=== PATIENT | female | born 1985 | race African-American/Black ===

== ENCOUNTER 2016-11-13 17:10 | Emergency (ER) | payer SELFPAY ==
[2016-11-13 17:19] VITALS: BMI 56.5
--- NOTE | 2016-11-13 18:26 | PDOC ---
History of Present Illness <Nyasia Fink - Last Filed: 11/13/16 20:34> - General History Source: Patient Exam Limitations: No Limitations - History of Present Illness Initial Comments: 11/13/16 18:27 this 31yo F with PMHX obesity (BMI 56.5), sickle cell disease, anemia, HTN, D&C 8yrs ago 2/2 8months of metorrhagia presents due to a cold and sickle cell crisis. She states she had a fever that began yesterday with fever of 101.1 measured at home, SIBLEY, stuffy nose and rhinorrhea, and clear productive cough. States she took Tylenol Cold & Flu which helped. When she woke up this morning, she states she had severe low back and b/l knee pain, consistent with previous sickle cell crises (last crisis Jan 2016). She denies lightheadedness, dizziness , vision changes, n/v/d/constipation, urinary changes, CP, SOB. States she is noncompliant with her amlodipine and folic acid She is a 1/2 ppd smoker for the past year. she drinks alcohol socially. denies illicit drug use. states her LMP was 2 weeks ago, and is in a relationship with a female. 11/13/16 18:34 Timing/Duration: 24 hours Associated Symptoms: reports: cough, fever/chills, headaches. denies: chest pain, diaphoresis, nausea/vomiting, seizure, shortness of breath, syncope <Lorenzo Liu - Last Filed: 11/14/16 00:48> - General Chief Complaint: SIRS, Suspected/Possible Stated Complaint: PAIN Time Seen by Provider: 11/13/16 17:42 Past History <DanaeNyasia - Last Filed: 11/13/16 20:34> - Travel Traveled outside of the country in the last 30 days: No Close contact w/someone who was outside of country & ill: Yes - Past Medical History Anemia: Yes (SICKLE CELL DISEASE.ANEMIA) Asthma: Yes Cancer: No Cardiac Disorders: No CVA: No COPD: No CHF: No Dementia: No Diabetes: No GI Disorders: No Disorders: No HTN: No Hypercholesterolemia: No Liver Disease: No Seizures: No Thyroid Disease: No - Surgical History Abdominal Surgery: No Appendectomy: No Cardiac Surgery: No Cholecystectomy: No Gastric Stapling: No GI Surgery: No Lung Surgery: No Neurologic Surgery: No Orthopedic Surgery: No Other Surgical History: 11/13/16 18:22 8 month metorrhagia 2/2 D&C 8yrs ago - Reproductive History LMP Normal: Yes Is Patient Now?: No - Immunization History Immunization Up to Date: Yes - Psycho/Social/Smoking Cessation Hx Anxiety: No Suicidal Ideation: No Smoking Status: No Smoking History: Current every day smoker Years of Tobacco Use: 1 Have you smoked in the past 12 months: No Number of Cigarettes Smoked Daily: 10 Information on smoking cessation initiated: No Hx Alcohol Use: No Drug/Substance Use Hx: No Substance Use Type: None Hx Substance Use Treatment: No <Lorenzo Liu - Last Filed: 11/14/16 00:48> - Past Medical History Allergies/Adverse Reactions: Allergies Allergy/AdvReac Type Severity Reaction Status Date / Time No Known Drug Allergies Allergy Verified 11/13/16 19:08 RAW VEGETABLES/FRUIT Allergy Severe Difficulty Uncoded 11/13/16 17:16 Breathing Home Medications: Ambulatory Orders NK [No Known Home Medication] 11/13/16 Review of Systems - Review of Systems Able to Perform ROS?: Yes Is the patient limited Cameroonian proficient: No Constitutional: Yes: Fever, Night Sweats, Weakness HEENTM: Yes: Nose Congestion. No: Eye Pain, Blurred Vision, Recent change in vision, Double Vision, Ear Discharge, Nose Pain, Tinnitus, Nose Bleeding, Hearing Loss, Throat Pain, Throat Swelling, Mouth Pain, Difficulty Swallowing, Mouth Swelling Respiratory: Yes: Cough, Productive cough (clear sputum). No: Shortness of Breath, Stridor, Wheezing Cardiac (ROS): No: Chest Pain, Edema, Irregular Heart Rate, Lightheadedness, Palpitations, Syncope ABD/GI: No: Constipated, Diarrhea, Difficulty Swallowing, Nausea, Vomiting, Abdominal cramping : No: Burning, Dysuria, Discharge, Frequency Musculoskeletal: Yes: Back Pain (lower back), Joint Pain (b/l knee). No: Muscle Pain, Muscle Weakness, Neck Pain Neurological: Yes: Headache. No: Weakness Endocrine: No: Increased Thirst, Increased Urine Hematologic/Lymphatic: Yes: Anemia All Other Systems: Reviewed and Negative <Lorenzo Liu - Last Filed: 11/14/16 00:48> *Physical Exam - Vital Signs Last Vital Signs Temp Pulse Resp BP Pulse Ox 99.1 F 114 H 20 154/108 97 11/13/16 19:08 11/13/16 17:16 11/13/16 17:16 11/13/16 17:16 11/13/16 17:16 <Nyasia Fink - Last Filed: 11/13/16 20:34> - Vital Signs Last Vital Signs Temp Pulse Resp BP Pulse Ox 100.1 F H 114 H 20 154/108 97 11/13/16 17:16 11/13/16 17:16 11/13/16 17:16 11/13/16 17:16 11/13/16 17:16 - Physical Exam General Appearance: Yes: Nourished, Appropriately Dressed HEENT: positive: EOMI, DONALD, Normal Voice, TMs Normal, Tonsillar Erythema, Nasal Congestion, Rhinorrhea. negative: Pale Conjunctivae, Scleral Icterus (R) , Scleral Icterus (L), Tonsillar Exudate, Excessive drooling Neck: positive: Trachea midline. negative: Decreased range of motion, Lymphadenopathy (R), Lymphadenopathy (L), Tender lateral, Tender midline Respiratory/Chest: positive: Wheezing (low lobes b/l) Cardiovascular: positive: Regular Rhythm, Regular Rate, Tachycardia. negative: Diastolic Murmur, Systolic Murmur, Irregularly Irregular, Irregular Gastrointestinal/Abdominal: positive: Normal Bowel Sounds, Soft Musculoskeletal: positive: Vertebral Tenderness (T10 to sacrum). negative: CVA Tenderness Neurologic: positive: Fully Oriented, Alert, Normal Mood/Affect, Normal Response <Lorenzo Liu - Last Filed: 11/14/16 00:48> Heart Score/ECG Review - ECG Intrepretation Comment:: 11/13/16 20:16 ECG obtained at 19:05 Normal sinus at 90 bpm. <Nyasia Fink - Last Filed: 11/13/16 20:34> ED Treatment Course - LABORATORY CBC & Chemistry Diagram: 11/13/16 18:59 11/13/16 18:59 - ADDITIONAL ORDERS Additional order review: Laboratory Results 11/13/16 11/13/16 11/13/16 19:38 18:59 18:59 INR PTT (Actin FS) VBG pH 7.41 POC VBG pCO2 43.1 POC VBG pO2 37.1 Mixed VBG HCO3 26.6 H Sodium 138 Potassium 3.7 Chloride 104 Carbon Dioxide 26 Anion Gap 8 BUN 7 Creatinine 1.0 D Creat Clearance w eGFR > 60 Random Glucose 104 Lactic Acid 0.7 Calcium 8.6 Total Bilirubin 0.7 D AST 10 L ALT 16 Alkaline Phosphatase 61 D Creatine Kinase 51 Troponin I < 0.02 Total Protein 7.6 Albumin 3.5 Urine Color Urine Appearance Urine pH Urine Protein Urine Glucose (UA) Urine Ketones Urine Blood Urine Nitrite Urine Bilirubin Urine Urobilinogen Ur Leukocyte Esterase Blood Type Antibody Screen 11/13/16 11/13/16 11/13/16 18:59 18:59 18:35 INR 1.27 H PTT (Actin FS) 31.0 VBG pH POC VBG pCO2 POC VBG pO2 Mixed VBG HCO3 Sodium Potassium Chloride Carbon Dioxide Anion Gap BUN Creatinine Creat Clearance w eGFR Random Glucose Lactic Acid Calcium Total Bilirubin AST ALT Alkaline Phosphatase Creatine Kinase Troponin I Total Protein Albumin Urine Color Yellow Urine Appearance Clear Urine pH 5.0 Urine Protein Negative Urine Glucose (UA) Negative Urine Ketones Negative Urine Blood Negative Urine Nitrite Negative Urine Bilirubin Negative Urine Urobilinogen 2.0 H Ur Leukocyte Esterase Negative Blood Type B POSITIVE Antibody Screen Negative 11/13/16 18:59 RBC 4.52 MCV 74.0 L MCHC 33.9 RDW 20.4 H MPV 8.9 Neutrophils % 72.1 Lymphocytes % 19.1 D Monocytes % 6.2 D Eosinophils % 1.6 Basophils % 1.0 - RADIOLOGY Radiograph Interpretation: 11/13/16 20:34 Chest x-ray as reviewed by Dr. Loco reports no acute pathology. - Medications Given in the ED: ED Medications Discontinued Medications Generic Name Dose Route Start Last Admin Trade Name Salas PRN Reason Stop Dose Admin Acetaminophen 1,000 mg 11/13/16 18:48 11/13/16 19:00 Ofirmev Injection - IVPB 11/13/16 18:49 1,000 mg ONCE ONE Administration Ketorolac Tromethamine 30 mg 11/13/16 18:48 11/13/16 19:29 Toradol Injection - IVPUSH 11/13/16 18:49 30 mg ONCE ONE Administration Sodium Chloride 4,763 ml 11/13/16 18:46 11/13/16 18:58 Normal Saline - IV 11/13/16 18:47 4,763 ml ONCE STA Administration <Nyasia Fink - Last Filed: 11/13/16 20:34> - LABORATORY CBC & Chemistry Diagram: 11/13/16 18:59 11/13/16 18:59 <Lorenzo Liu - Last Filed: 11/14/16 00:48> Medical Decision Making - Medical Decision Making 11/13/16 18:27 31yo F with PMHX obesity (BMI 56.5), sickle cell disease, anemia, HTN, D&C 8yrs ago 2/2 8months of metorrhagia presents due to a cold and sickle cell crisis. Sickle cell crisis precipitated by viral infection -IVF, 2L O2. Pt refuses morphine that was offered. -CBC w/ diff. Retic count. BMP. Lactic acid. Fever of unknown origin -pt states she measured at home and got 101.1F. We have measured 100.1. Pt is also HTN and tachycardic. -Blood culture. Urinalysis w/ urine . -Chest Xray. -IV Tylenol and Toradol 11/13/16 18:45 <Lorenzo Liu - Last Filed: 11/14/16 00:48> *DC/Admit/Observation/Transfer - Attestations Scribe Attestion: 11/13/16 20:35 Documentation prepared by Nyasia Fink, acting as medical laboratory scientist for Lorenzo Liu DO. 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 Keep your fever down and stay well hydrated. Motrin, Tylenol and 5 20 Ounce Bottles of water a day. Best- Dr. Lorenzo Liu
[2016-11-13] MEDS ORDERED: SODIUM CHLORIDE 0.9% 1000 ML INFUS.BAG IV STA (18:46)
[2016-11-13] MEDS ORDERED: ACETAMINOPHEN 1000 MG/100 ML VIAL (NON FORMULARY) IVPB ONE (18:48)
[2016-11-13] MEDS ORDERED: KETOROLAC TROMETHAMINE 30 MG/1 ML VIAL IVPUSH ONE (18:48)
[2016-11-13 19:16] LABS: EOSINOPHIL 1.6 % (0-4.5); MCHC 33.9 g/dl (32.0-36.0); MEAN PLT VOLUME 8.9 fl (7.5-11.1); NEUTROPHILS 72.1 % (42.8-82.8); PLATELET COUNT 191 K/MM3 (134-434); RDW 20.4 % (11.6-15.6); WHITE BLOOD COUNT 6.9 K/mm3 (4.0-10.0)
[2016-11-13 19:17] LABS: URINE APPEARANCE CLEAR; URINE BILIRUBIN NEGATIVE (NEGATIVE); URINE BLOOD NEGATIVE (NEGATIVE); URINE COLOR YELLOW; URINE GLUCOSE (UA) NEGATIVE (NEGATIVE); URINE KETONE NEGATIVE (NEGATIVE); URINE LEUK ESTERASE NEGATIVE (NEGATIVE); URINE NITRITE NEGATIVE (NEGATIVE); URINE PROTEIN NEGATIVE (NEGATIVE)
[2016-11-13] MEDS ORDERED: KETOROLAC TROMETHAMINE 30 MG/1 ML VIAL ONE (19:31)
[2016-11-13 19:47] LABS: INR 1.27 (0.82-1.09)
[2016-11-13 19:50] LABS: VENOUS BLOOD GAS HCO3 26.6 meq/L (19-25); VENOUS PH 7.41 (7.32-7.42)
[2016-11-13 19:53] LABS: ALBUMIN 3.5 g/dl (3.4-5.0); ANION GAP 8 (8-16); BILIRUBIN,TOTAL 0.7 mg/dL (0.2-1.0); CALCIUM 8.6 mg/dL (8.5-10.1); CO2 26 mmol/L (21-32); GLUCOSE,RANDOM 104 mg/dL (74-106); SGOT/AST 10 U/L (15-37); SGPT/ALT 16 U/L (12-78); TOT PROT 7.6 g/dl (6.4-8.2)
[2016-11-13 19:55] LABS: ALK PHOS 61 U/L (45-117); CPK 51 IU/L (26-192); TROPONIN I < 0.02 ng/ml (0.00-0.05)
[2016-11-14 02:32] VITALS: BP 148/89; PULSE 97; TEMP 98.6
--- NOTE | 2016-11-15 08:16 | EKG ---
Test Reason : Blood Pressure : / mmHG Vent. Rate : 090 BPM Atrial Rate : 090 BPM P-R Int : 152 ms QRS Dur : 086 ms QT Int : 356 ms P-R-T Axes : 030 018 021 degrees QTc Int : 435 ms POOR DATA QUALITY, INTERPRETATION MAY BE ADVERSELY AFFECTED NORMAL SINUS RHYTHM MINIMAL VOLTAGE CRITERIA FOR LVH, MAY BE NORMAL VARIANT BORDERLINE ECG NO PREVIOUS ECGS AVAILABLE Confirmed by ALFREDO PALMA, SILVIA ([id number]) on 11/15/2016 8:16:00 AM Referred By: Confirmed By:SILVIA FUENTES MD
== END 2016-11-14 06:00 | disposition home or self-care (01) ==
LOC: JER 17:10
PROC: 3E033GC Introduction of Other Therapeutic Substance into Peripheral Vein, Percutaneous Approach (ICD-10-PCS; principal; 2016-11-13)
PROC: 3E0337Z Introduction of Electrolytic and Water Balance Substance into Peripheral Vein, Percutaneous Approach (ICD-10-PCS; 2016-11-13)
DX: D57.00 Hb-SS disease with crisis, unspecified (principal); I10 Essential (primary) hypertension; J45.909 Unspecified asthma, uncomplicated; E66.9 Obesity, unspecified; Z68.43 Body mass index [BMI] 50.0-59.9, adult; F17.210 Nicotine dependence, cigarettes, uncomplicated; Z91.14 Patient's other noncompliance with medication regimen; D64.9 Anemia, unspecified
CPT/HCPCS: 36415; 71020-TC; 80053; 81003; 82803; 83605; 84484; 85025; 85044; 85610; 85730; 86850; 86900; 86901; 87040; 87086; 93005; 93010; 99285-25

== ENCOUNTER 2019-06-08 23:44 | Emergency (ER) | payer OTHER ==
[2019-06-08 23:48] VITALS: TEMP 98.6; BMI 53.8
--- NOTE | 2019-06-08 23:58 | PDOC ---
History of Present Illness - General Chief Complaint: Sickle Cell Crisis Stated Complaint: SICK Time Seen by Provider: 06/08/19 23:57 - History of Present Illness Initial Comments: 06/08/19 23:57 34 yo F PMH obesity, sickle cell disease, anemia, HTN, D&C 2/2 metrorrhagia, presenting with pain. Reports that it began around 1900 with pain below her left knee and in her b/l elbows, identical to her normal pain crises. Tried acetam inophen without relief. Last crisis was in March 2019, went to [facility]. Does not know what triggered it; no recent travel or sick contacts, afebrile, no CP or SOB. Refuses morphine; states that she has received it once and hated it. Only wants acetaminophen with codeine, which is what she has used for prior episodes. Past History - Past Medical History Allergies/Adverse Reactions: Allergies Allergy/AdvReac Type Severity Reaction Status Date / Time No Known Drug Allergies Allergy Verified 06/10/19 05:48 RAW VEGETABLES/FRUIT Allergy Severe Difficulty Uncoded 06/10/19 05:48 Breathing Home Medications: Ambulatory Orders Amlodipine Besylate 5 mg PO DAILY 06/09/19 Anemia: Yes (SICKLE CELL DISEASE.ANEMIA) Asthma: Yes Cancer: No Cardiac Disorders: No CVA: No COPD: No CHF: No Dementia: No Diabetes: No GI Disorders: No Disorders: No HTN: No Hypercholesterolemia: No Liver Disease: No Seizures: No Thyroid Disease: No - Surgical History Abdominal Surgery: No Appendectomy: No Cardiac Surgery: No Cholecystectomy: No Gastric Stapling: No GI Surgery: No Lung Surgery: No Neurologic Surgery: No Orthopedic Surgery: No - Immunization History Immunization Up to Date: Yes - Psycho Social/Smoking Cessation Hx Smoking Status: No Smoking History: Never smoked Years of Tobacco Use: 1 Have you smoked in the past 12 months: No Number of Cigarettes Smoked Daily: 10 Information on smoking cessation initiated: No Hx Alcohol Use: No Drug/Substance Use Hx: No Substance Use Type: None Hx Substance Use Treatment: No Review of Systems - Review of Systems Comments:: 06/09/19 00:19 GENERAL/CONSTITUTIONAL: denies fever, chills, diaphoresis, generalized weakness, malaise, loss of appetite, weight change HEAD, EYES, EARS, NOSE AND THROAT: denies rhinorrhea, nasal congestion, throat pain, throat swelling, difficulty swallowing, mouth swelling, ear pain, eye pain, visual changes NEUROLOGIC: denies headache, focal weakness or paresthesias, dizziness, unsteady gait, seizure, mental status changes, bladder or bowel incontinence CARDIOVASCULAR: denies chest pain, syncope, palpitations, irregular heart rate, lightheadedness, peripheral edema RESPIRATORY: denies cough, shortness of breath, dyspnea with exertion, orthopnea, wheezing, stridor, hemoptysis GASTROINTESTINAL: denies abdominal pain, abdominal distension, nausea, vomiting, diarrhea, constipation, melena, hematochezia GENITOURINARY: denies dysuria, frequency, urgency, hesitancy, hematuria, flank pain, genital pain MUSCULOSKELETAL: endorses severe arthralgia below L knee with joint swelling. Denies back pain, neck pain SKIN: denies rash, itching, pallor HEMATOLOGIC/IMMUNOLOGIC: denies easy bleeding, easy bruising, lymphadenopathy, frequent infections ENDOCRINE: denies unexplained weight gain, unexplained weight loss, heat intolerance, cold intolerance PSYCHIATRIC: denies anxiety, depression, suicidal or homicidal ideation, hallucinations *Physical Exam - Vital Signs Last Vital Signs Temp Pulse Resp BP Pulse Ox 98.6 F 89 23 H 157/97 96 06/08/19 23:46 06/08/19 23:46 06/08/19 23:46 06/08/19 23:46 06/08/19 23:46 - Physical Exam 06/09/19 00:21 Gen: well-developed, well-nourished, appears in significant pain Neuro: AAOX4, CN II-XII intact, FTN intact, EOMI, PERRLA, 5/5 strength, SILT HEENT: atraumatic, normocephalic, dry mucous membranes Neck: trachea midline, supple CV: regular rate, regular rhythm, no murmurs, rubs, or gallops Pulm: CTA b/l, no wheezing Abd: soft, non-distended, non-tender MSK: full ROM, intact pulses, tenderness and swelling below L knee Extr: no edema, no deformities Skin: warm, dry ED Treatment Course - LABORATORY CBC & Chemistry Diagram: 06/09/19 00:05 06/09/19 00:05 Medical Decision Making - Medical Decision Making 06/09/19 00:14 Concern for sickle cell crisis. - CBC, CMP - 1L LR - acetaminophen with codeine 02/28/20 01:18 Pain unchanged, will put in morphine and Zofran. Also get hip and knee X rays, c/f osteonecrosis. 06/09/19 03:22 Pain ongoing, will give more morphine and toradol. 06/09/19 03:23 Knee and hip X rays without acute pathology. Pain improved with last dose of medications. Will dc patient for further outpatient management. Discharge - Discharge Information Problems reviewed: Yes Clinical Impression/Diagnosis: Sickle-cell crisis Condition: Improved Disposition: HOME - Follow up/Referral Referrals: Ritu Gonzalez MD [Primary Care Provider] - - Patient Discharge Instructions Patient Printed Discharge Instructions: DI for Sickle Cell Anemia, Pain Crisis -- Adult Additional Instructions: You were seen with a sickle cell crisis. This improved with pain medication. Please take over the counter pain medication as needed. Follow up with your primary care doctor within one week. Return to the ED if you develop worsening symptoms. - Post Discharge Activity Work/Back to School Note: Back to Work
[2019-06-09] MEDS ORDERED: ACETAMINOPHEN W/ CODEINE LIQ 5 ML CUP PO ONE (00:03)
[2019-06-09] MEDS ORDERED: LACTATED RINGERS SOLUTION 1,000 ML/1,000 ML INFUS.BAG IV STA ×2 (00:10→03:22)
[2019-06-09] MEDS ORDERED: ACETAMINOPHEN W/ CODEINE LIQ 5 ML CUP ONE (00:22)
--- NOTE | 2019-06-09 00:33 | PDOC ---
Attending Attestation - Resident Resident Name: Alis Patterson - ED Attending Attestation I have performed the following: I have examined & evaluated the patient, The case was reviewed & discussed with the resident, I agree w/resident's findings & plan, Exceptions are as noted - HPI HPI: 06/09/19 00:32 See resident HPI - Physicial Exam PE: 06/09/19 00:32 Agree with documented exam - Medical Decision Making 06/09/19 00:32 34F c/o LLE and bilateral UE px which is typical distribution of prior scc Denies f/c, recent travel, sick contacts Exam inconsistent with infection IVF, analgesia re-eval Pain improved after 3 rounds of medication dc home with return instructions
[2019-06-09 00:53] LABS: BASO % 0.4 % (0-2.0); EOS % 0.7 % (0-4.5); HEMATOCRIT 31.9 % (32.4-45.2); LYMPH % 17.9 % (8-40); MCH 25.7 pg (25.7-33.7); MCHC 34.5 g/dl (32.0-36.0); MEAN CELL VOLUME 74.4 fl (80-96); MEAN PLT VOLUME 8.6 fl (7.5-11.1); MONO % 3.7 % (3.8-10.2); NEUT % 77.3 % (42.8-82.8); PLATELET COUNT 203 K/MM3 (134-434); RBC 4.29 M/mm3 (3.60-5.2); RDW 18.4 % (11.6-15.6); WHITE BLOOD COUNT 11.2 K/mm3 (4.0-10.0)
[2019-06-09] MEDS ORDERED: ONDANSETRON 4 MG/2 ML VIAL IVPUSH ONE (01:17)
[2019-06-09] MEDS ORDERED: morphine CARPU-JECT 4 MG/1 ML DISP.SYRIN IVPUSH ONE ×2 (01:17→03:12)
[2019-06-09 01:21] LABS: ALBUMIN 3.7 g/dl (3.4-5.0); BILIRUBIN,TOTAL 0.6 mg/dL (0.2-1); BLOOD UREA NITROGEN 12.3 mg/dL (7-18); CALCIUM 8.5 mg/dL (8.5-10.1); TOT PROT 7.8 g/dl (6.4-8.2)
[2019-06-09] MEDS ORDERED: morphine SULFATE 4 MG/ML VIAL ONE ×2 (01:22→03:14)
[2019-06-09] MEDS ORDERED: ONDANSETRON 4 MG/2 ML VIAL ONE (01:22)
[2019-06-09] MEDS ORDERED: KETOROLAC TROMETHAMINE 30 MG/1 ML VIAL IVPUSH ONE (03:13)
[2019-06-09] MEDS ORDERED: KETOROLAC TROMETHAMINE 15 MG/ML VIAL ONE (03:15)
[2019-06-09 05:10] VITALS: BP 130/71; PULSE 76
== END 2019-06-09 05:14 | disposition home or self-care (01) ==
LOC: JER 23:44
PROC: 3E0337Z Introduction of Electrolytic and Water Balance Substance into Peripheral Vein, Percutaneous Approach (ICD-10-PCS; principal; 2019-06-08)
PROC: 3E033NZ Introduction of Analgesics, Hypnotics, Sedatives into Peripheral Vein, Percutaneous Approach (ICD-10-PCS; 2019-06-08)
PROC: 3E033GC Introduction of Other Therapeutic Substance into Peripheral Vein, Percutaneous Approach (ICD-10-PCS; 2019-06-08)
PROC: 3E0333Z Introduction of Anti-inflammatory into Peripheral Vein, Percutaneous Approach (ICD-10-PCS; 2019-06-08)
DX: D57.00 Hb-SS disease with crisis, unspecified (principal); I10 Essential (primary) hypertension; E66.01 Morbid (severe) obesity due to excess calories; Z68.43 Body mass index [BMI] 50.0-59.9, adult; Z91.018 Allergy to other foods; Z87.09 Personal history of other diseases of the respiratory system
CPT/HCPCS: 36415; 73523-TC-FY; 73560-TC-LT-FY; 80053; 85025; 96361; 96374; 96375; 96376; 99284-25

== ENCOUNTER 2019-06-10 05:09 | Inpatient (IN) | payer OTHER ==
[2019-06-10] MEDS ORDERED: ONDANSETRON 4 MG/2 ML VIAL IVPUSH ONE (06:19)
[2019-06-10] MEDS ORDERED: SODIUM CHLORIDE 0.9% 500 ML INFUS.BAG IV ONE (06:19)
[2019-06-10] MEDS ORDERED: morphine CARPU-JECT 4 MG/1 ML DISP.SYRIN IVPUSH ONE (06:19)
--- NOTE | 2019-06-10 06:31 | PDOC ---
History of Present Illness - General Chief Complaint: Chronic pain Stated Complaint: PAIN History Source: Patient Exam Limitations: No Limitations - History of Present Illness Initial Comments: 06/10/19 06:23 34YOF with h/o sickle cell disease (states she does not know SS/CS type, states her mother has it too) who returns to the ED with BLE pain worse in the knees and calves which she states is typical of her normal sickle cell pain crisis. She was seen here in the ED last night for the same complaint. She is still able to ambulate albeit with a limp. Denies any skin changes, jaundice, pallor, chest pain, SOB, SIBLEY, back pain, n/t/w focally, vision changes, abdominal pain, vaginal bleeding/discharge, dysuria, or any other symptoms. Past History - Past Medical History Allergies/Adverse Reactions: Allergies Allergy/AdvReac Type Severity Reaction Status Date / Time No Known Drug Allergies Allergy Verified 06/10/19 05:48 RAW VEGETABLES/FRUIT Allergy Severe Difficulty Uncoded 06/10/19 05:48 Breathing Home Medications: Ambulatory Orders Amlodipine Besylate 5 mg PO DAILY 06/09/19 Acetaminophen W/ Codeine #3 [Tylenol # 3 -] 2 tab PO Q6H PRN #40 tablet MDD 8 06/11/19 Ondansetron HCl [Zofran] 4 mg PO Q6H PRN #15 tablet 06/11/19 Anemia: Yes (SICKLE CELL DISEASE.ANEMIA) Asthma: Yes Cancer: No Cardiac Disorders: No CVA: No COPD: No CHF: No Dementia: No Diabetes: No GI Disorders: No Disorders: No HTN: No Hypercholesterolemia: No Liver Disease: No Seizures: No Thyroid Disease: No - Surgical History Abdominal Surgery: No Appendectomy: No Cardiac Surgery: No Cholecystectomy: No Gastric Stapling: No GI Surgery: No Lung Surgery: No Neurologic Surgery: No Orthopedic Surgery: No - Immunization History Immunization Up to Date: Yes - Psycho Social/Smoking Cessation Hx Smoking Status: No Smoking History: Never smoked Years of Tobacco Use: 1 Have you smoked in the past 12 months: No Number of Cigarettes Smoked Daily: 10 Information on smoking cessation initiated: No Hx Alcohol Use: No Drug/Substance Use Hx: No Substance Use Type: None Hx Substance Use Treatment: No Review of Systems - Review of Systems Able to Perform ROS?: Yes Comments:: 06/10/19 06:31 GEN: no fever, chills, malaise, or generalized weakness HEENT: no ear pain, congestion, sore throat, vision change, or eye pain CV: no chest pain, palpitations, lightheadedness, syncope, or edema RESP: no SOB, wheezing, or cough GI: no abdominal pain, nausea, vomiting, diarrhea, constipation, or rectal bleed : no dysuria, hematuria, or discharge MSK: left knee pain, left calf pain NEURO: no headache, vertigo, numbness, tingling, or focal weakness PSYCH: no SI, HI, or behavior change SKIN: no jaundice, rash, lesions, or unexplained bruises ROS otherwise negative except as noted in HPI *Physical Exam - Vital Signs Last Vital Signs Temp Pulse Resp BP Pulse Ox 98.2 F 71 20 148/81 99 06/10/19 05:48 06/10/19 05:48 06/10/19 05:48 06/10/19 05:48 06/10/19 05:48 - Physical Exam 06/10/19 06:32 GENERAL: nontoxic-appearing, A/Ox4, moderate distress, answers questions appropriately, obese, partner at bedside appears supportive HEENT: PERRLA, EOMI, moist mucous membranes NECK/BACK: no midline ttp, no spinal stepoff or deformity, no hematoma, full ROM, neck supple CARDIOVASCULAR: regular rate/rhythm, no MGR, strong peripheral pulses, capillary refill <2 seconds, extremities wwp, no edema LUNGS/RESPIRATORY: no respiratory distress, CTAB GI/ABDOMEN: symmetric [id number], normoactive BS, soft, no ttp, no midline pulsatile masses : no CVA tenderness EXTREMITIES: left knee and calf tenderness but full ROM, no muscle atrophy, no acute deformity DERM/SKIN: warm and dry, no pallor, no jaundice, no rash, no bruising, no skin breakdown, no cuts, no lesions NEUROLOGICAL: seen ambulating with limp to exam room, GCS 15, CN II-XII grossly intact, 5/5 strength proximally and distally, no facial droop, sensation intact and equal BLE distally Heart Score/ECG Review #1 Sinus rhythm, rate of 53, normal axis and intervals, no ischemic ST-T changes ED Treatment Course - LABORATORY CBC & Chemistry Diagram: 06/11/19 08:05 06/11/19 08:05 Medical Decision Making - Medical Decision Making 06/10/19 06:24 Adult female Pt with sickle cell disease p/w left knee pain. Patient states she does have a PCP but has not been taking any home meds for SSD and does not get her recommended immunizations. Initial Vital Signs Temp Pulse Resp BP Pulse Ox 98.2 F 71 20 148/81 99 06/10/19 05:48 06/10/19 05:48 06/10/19 05:48 06/10/19 05:48 06/10/19 05:48 Exam: As noted in Physical Exam section. DDX IBNLT: most likely vasoocclusive pain crisis as this is consistent with prior pain crises and her x-rays yesterday showed nothing acute. Very unlikely any other more serious etiology e.g. aplastic crisis, stroke, sepsis (encapsulated organisms, sources meningitis/osteomyelitis/PNA/leg ulcers/UTI, post-splenectomy sepsis syndrome, etc), osteonecrosis, etc W/U ordered: Labs as noted below, EKG TX ordered: IVF, morphine and Benadryl Unlikely acute chest syndrome as Pt is not febrile or hypoxic, no cough or chest pain, no CXR consolidation. Unlikely splenic sequestration crisis as Pt denies abdominal pain, no splenomegaly, no clinical pallor, VS wnl. Unlikely aplastic crisis as VS wnl and Pt not in shock, no clinical pallor, no reported lethargy. Unlikely stroke as Pt has no aphasia, vision change, hemiparesis, or other focal neuro deficit. Unlikely sepsis as VS wnl, clinically Pt has no e/o meningitis, osteomyelitis, PNA, UTI, infected ulcers, etc. Unlikely post-splenectomy sepsis syndrome as Pt denies fever/flu sxs, VS are not concerning for sepsis. Unlikely leg ucer infection as Pt has no ulcers over malleoli (common in sickle cell disease). Unlikely bilirubin cholelithiasis as Pt denies RUQ pain changing with meals. Unlikely osteonecrosis as Pt denies hip or shoulder pain. Probable vasoocclusive crisis as Pts pain is in ribs/back/limbs, present <7days, no clinical signs of anemia. EKG: Reviewed; results as noted in ECG Review section. This is the patient's second visit and she is being worked up for admission. She states she is amenable to admission. Patient's ED care endorsed to the oncoming team at the end of my shift. Discharge - Discharge Information Problems reviewed: Yes Clinical Impression/Diagnosis: Sickle-cell crisis Condition: Guarded - Follow up/Referral - Patient Discharge Instructions - Post Discharge Activity
--- NOTE | 2019-06-10 06:32 | PDOC ---
Attending Attestation - Resident Resident Name: SanjuanaAshlyn - ED Attending Attestation I have performed the following: I have examined & evaluated the patient, The case was reviewed & discussed with the resident, I agree w/resident's findings & plan - HPI HPI: 06/10/19 06:31 Pt comes with intactable left knee pain; sickle cell crisis. SHe was here 24 hrs prior for the same and went home because she thought that she was doing better. Pt's labs are all WNL We will draw a retic ocunt and treat with pain meds. - Physicial Exam PE: 06/11/19 06:56 Agree with resident exam. Pt is overweight Pt is able to ambulate with pain Pt afebrile chronic joint pain. - Medical Decision Making 06/11/19 06:58 06/11/19 06:57 will get a retic count and she will be signed out to the day team
[2019-06-10] MEDS ORDERED: ONDANSETRON 4 MG/2 ML VIAL ONE (07:09)
[2019-06-10] MEDS ORDERED: morphine SULFATE 4 MG/ML VIAL ONE ×2 (07:09→10:55)
--- NOTE | 2019-06-10 07:33 | PDOC ---
*Physical Exam - Vital Signs Last Vital Signs Temp Pulse Resp BP Pulse Ox 98.2 F 71 20 148/81 99 06/10/19 05:48 06/10/19 05:48 06/10/19 05:48 06/10/19 05:48 06/10/19 05:48 - Physical Exam 06/10/19 07:33 GENERAL: Awake, alert, and fully oriented, in no acute distress HEAD: No signs of trauma, normocephalic, atraumatic EYES: PERRLA, EOMI, sclera anicteric, conjunctiva clear ENT: Auricles normal inspection, hearing grossly normal, nares patent, oropharynx clear without exudates. Moist mucosa NECK: Normal ROM, supple, no lymphadenopathy, JVD, or masses LUNGS: No distress, speaks full sentences, clear to auscultation bilaterally HEART: Regular rate and rhythm, normal S1 and S2, no murmurs, rubs or gallops, peripheral pulses normal and equal bilaterally. ABDOMEN: Soft, nontender, normoactive bowel sounds. No guarding, no rebound. No masses EXTREMITIES : Diffuse left knee ttp. Normal inspection, Normal range of motion, no edema. No clubbing or cyanosis. 2+ palpable and symmetric pulses throughout. NEUROLOGICAL: Cranial nerves II through XII grossly intact. Normal speech, normal gait, no focal sensorimotor deficits SKIN: Warm, Dry, normal turgor, no rashes or lesions noted ED Treatment Course - LABORATORY CBC & Chemistry Diagram: 06/10/19 07:00 06/10/19 07:00 Medical Decision Making - Medical Decision Making 06/10/19 07:28 34 yo F with h/o s.s disease, HTN, who p/w BL UE pain and left knee pain consistent with prior acute pain crisis. Patient endorsed by Dr. Adkins. Patient denies PO analgesia use. Patient denies SIBLEY, vision change, palpitations, cough, wheezing, leg swelling, N/V, F,C, CP, SOB, urinary complaints, hematuria, BPR, abdominal pain, diarrhea, lightheadedness, weakness, sensory changes. Patient presents to ED following recent d/c (06/09/19) for same presentation, improvement after morphine, and toradol. LLE neurovascularly intact. Pending labs, admission. Ed course: Diphenhydramine, Morphine Discharge - Discharge Information Problems reviewed: Yes Clinical Impression/Diagnosis: Sickle-cell crisis Condition: Stable - Admission Yes - Follow up/Referral Referrals: Mariajose Victor MD [Primary Care Provider] - - Patient Discharge Instructions - Post Discharge Activity
[2019-06-10 07:57] LABS: BASO % 0.7 % (0-2.0); EOS % 3.1 % (0-4.5); HEMATOCRIT 32.1 % (32.4-45.2); HEMOGLOBIN 11.3 GM/dL (10.7-15.3); LYMPH % 20.4 % (8-40); MCH 25.9 pg (25.7-33.7); MCHC 35.3 g/dl (32.0-36.0); MEAN CELL VOLUME 73.4 fl (80-96); MEAN PLT VOLUME 8.6 fl (7.5-11.1); NEUT % 72.8 % (42.8-82.8); PLATELET COUNT 197 K/MM3 (134-434); RBC 4.37 M/mm3 (3.60-5.2); RDW 18.6 % (11.6-15.6); WHITE BLOOD COUNT 8.9 K/mm3 (4.0-10.0)
[2019-06-10 08:04] LABS: INR 1.14 (0.83-1.09); PROTHROMBIN TIME (PATIENT) 13.5 SEC (9.7-13.0)
[2019-06-10 08:17] LABS: ALBUMIN 3.8 g/dl (3.4-5.0); BILIRUBIN,TOTAL 0.6 mg/dL (0.2-1); BLOOD UREA NITROGEN 9.2 mg/dL (7-18); CALCIUM 8.7 mg/dL (8.5-10.1); CREATININE 0.9 mg/dL (0.55-1.3); POTASSIUM 3.9 mmol/L (3.5-5.1); TOT PROT 7.7 g/dl (6.4-8.2)
[2019-06-10] MEDS ORDERED: morphine SULFATE 4 MG/ML VIAL IVPUSH PRN (09:16)
[2019-06-10] MEDS ORDERED: amLODIPine BESYLATE 5 MG TABLET (FP) ONE (09:53)
[2019-06-10] MEDS ORDERED: ENOXAPARIN NA (PORCINE) 40 MG/0.4 ML DISP.SYRIN SQ ONE (09:53)
[2019-06-10] MEDS: ENOXAPARIN NA (PORCINE) 40 MG/0.4 ML DISP.SYRIN SQ SCH (10:02)
[2019-06-10] MEDS: amLODIPine BESYLATE 5 MG TABLET (FP) PO SCH (10:02)
[2019-06-10] MEDS: SODIUM CHLORIDE 0.45% 1,000 ML IV SCH (10:02)
--- NOTE | 2019-06-10 13:10 | HP ---
Admitting History and Physical - Primary Care Physician PCP: Mariajose Victor - Admission Chief Complaint: pain History of Present Illness: known h/o sickle cell ds. here for severe sickle pain was in er yesterday was discharged but returned due to severe leg pain starts in knee radiating to thigh and calf usually pain is not this severe though no recent trauma or illness History Source: Patient Limitations to Obtaining History: No Limitations - Past Medical History Cardiovascular: Yes: HTN ...LMP: 10/21/12 Heme/Onc: Yes: Sickle Cell Disease - Smoking History Smoking history: Never smoked Have you smoked in the past 12 months: No Aproximately how many cigarettes per day: 10 - Alcohol/Substance Use Hx Alcohol Use: No - Social History ADL: Independent Home Medications - Allergies Allergies/Adverse Reactions: Allergies Allergy/AdvReac Type Severity Reaction Status Date / Time No Known Drug Allergies Allergy Verified 06/10/19 05:48 RAW VEGETABLES/FRUIT Allergy Severe Difficulty Uncoded 06/10/19 05:48 Breathing - Home Medications Home Medications: Ambulatory Orders Amlodipine Besylate 5 mg PO DAILY 06/09/19 Review of Systems - Review of Systems Constitutional: reports: No Symptoms Eyes: reports: No Symptoms HENT: reports: No Symptoms Neck: reports: No Symptoms Cardiovascular: reports: No Symptoms Respiratory: reports: No Symptoms Gastrointestinal: reports: No Symptoms Genitourinary: reports: No Symptoms Musculoskeletal: reports: Joint Pain, Muscle Pain (left knee and leg) Integumentary: reports: No Symptoms Neurological: reports: No Symptoms Endocrine: reports: No Symptoms Hematology/Lymphatic: reports: No Symptoms Psychiatric: reports: No Symptoms Pain Intensity: 9 Physical Examination Vital Signs: Vital Signs Temperature 97.8 F 06/10/19 11:12 Pulse Rate 57 L 06/10/19 11:12 Respiratory Rate 06/10/19 05:48 Blood Pressure 158/89 06/10/19 11:12 O2 Sat by Pulse Oximetry (%) 98 06/10/19 11:12 Constitutional: Yes: No Distress, Calm, Obese Eyes: Yes: EOM Intact HENT: Yes: Normocephalic Neck: Yes: Trachea Midline Cardiovascular: Yes: Regular Rate and Rhythm Respiratory: Yes: CTA Bilaterally Gastrointestinal: Yes: Normal Bowel Sounds, Soft, Abdomen, Obese Musculoskeletal: Yes: Other (left knee is tender, no effusion, no erythema, no warmth) Extremities: Yes: Calf Tenderness (left) Edema: Yes Edema: LLE: Trace Peripheral Pulses WNL: Yes Integumentary: Yes: WNL Neurological: Yes: WNL ...Motor Strength: WNL Psychiatric: Yes: WNL Labs: CBC, BMP 06/10/19 07:00 06/10/19 07:00 Imaging - Results X-ray: Report Reviewed (knee xray ok) Problem List - Problems (1) Sickle-cell crisis Code(s): D57.00 - HB-SS DISEASE WITH CRISIS, UNSPECIFIED (2) HTN (hypertension) Code(s): I10 - ESSENTIAL (PRIMARY) HYPERTENSION Qualifiers: Hypertension type: essential hypertension Qualified Code(s): I10 - Essential (primary) hypertension (3) Obesity, unspecified Code(s): E66.9 - OBESITY, UNSPECIFIED Qualifiers: Body mass index: BMI 50.0-59.9 Assessment/Plan iv fluids pain mgmnt dvt prophylaxis us r/o dvt in lle
--- NOTE | 2019-06-10 13:21 | EKG ---
Test Reason : Blood Pressure : / mmHG Vent. Rate : 053 BPM Atrial Rate : 053 BPM P-R Int : 162 ms QRS Dur : 098 ms QT Int : 460 ms P-R-T Axes : 031 041 051 degrees QTc Int : 431 ms SINUS BRADYCARDIA WITH SINUS ARRHYTHMIA Confirmed by KING MARAVILLA MD ([id number]) on 06/10/2019 1:21:34 PM Referred By: Confirmed By:KING MARAVILLA MD
[2019-06-10 14:24] VITALS: BMI 52.2
[2019-06-10] MEDS: morphine SULFATE 4 MG/ML VIAL IVPUSH PRN ×2 (17:27→23:48)
[2019-06-10] MEDS: ACETAMINOPHEN WITH CODEINE 300MG/30MG TABLET PO PRN (20:08)
[2019-06-10 20:23] LABS: URINE APPEARANCE CLEAR; URINE BILIRUBIN NEGATIVE (NEGATIVE); URINE COLOR YELLOW; URINE GLUCOSE (UA) NEGATIVE (NEGATIVE); URINE KETONE NEGATIVE (NEGATIVE); URINE LEUK ESTERASE NEGATIVE (NEGATIVE); URINE NITRITE NEGATIVE (NEGATIVE); URINE PROTEIN NEGATIVE (NEGATIVE)
[2019-06-11] MEDS: ACETAMINOPHEN WITH CODEINE 300MG/30MG TABLET PO PRN (01:47)
[2019-06-11] MEDS: morphine SULFATE 4 MG/ML VIAL IVPUSH PRN ×3 (06:19→15:26)
[2019-06-11 08:41] LABS: HEMATOCRIT 30.9 % (32.4-45.2); HEMOGLOBIN 10.8 GM/dL (10.7-15.3); MCH 25.8 pg (25.7-33.7); MCHC 34.9 g/dl (32.0-36.0); MEAN CELL VOLUME 73.9 fl (80-96); MEAN PLT VOLUME 8.1 fl (7.5-11.1); PLATELET COUNT 161 K/MM3 (134-434); RBC 4.18 M/mm3 (3.60-5.2); RDW 18.1 % (11.6-15.6); WHITE BLOOD COUNT 7.2 K/mm3 (4.0-10.0)
[2019-06-11] MEDS ORDERED: ONDANSETRON 4 MG/2 ML VIAL IVPB PRN (08:56)
[2019-06-11 09:01] LABS: ALBUMIN 3.4 g/dl (3.4-5.0); BILIRUBIN,TOTAL 0.8 mg/dL (0.2-1); BLOOD UREA NITROGEN 6.5 mg/dL (7-18); CALCIUM 8.5 mg/dL (8.5-10.1); CREATININE 0.8 mg/dL (0.55-1.3); POTASSIUM 3.9 mmol/L (3.5-5.1); TOT PROT 7.3 g/dl (6.4-8.2)
--- NOTE | 2019-06-11 09:20 | PN ---
Progress Note (short form) - Note Progress Note: CBC, BMP 06/11/19 08:05 06/11/19 08:05 Vital Signs Period Temp Pulse Resp BP Sys/Romero Pulse Ox Last 24 Hr 97.3 F-99.0 F 18-88 18-67 119-160/53-91 98-100 s1s2 rrr lungs cta abd soft nt +bs no edema, pos.pulses left dutton pain and tenderness able to ambulate c/o nausea after tylenol#3 and MS sickle cell crisis/acute pain await us r/o dvt cont iv fluids and pain meds dc planning within 24 hours Problem List - Problems (1) Sickle-cell crisis Code(s): D57.00 - HB-SS DISEASE WITH CRISIS, UNSPECIFIED (2) HTN (hypertension) Code(s): I10 - ESSENTIAL (PRIMARY) HYPERTENSION Qualifiers: Hypertension type: essential hypertension Qualified Code(s): I10 - Essential (primary) hypertension (3) Obesity, unspecified Code(s): E66.9 - OBESITY, UNSPECIFIED Qualifiers: Body mass index: BMI 50.0-59.9
[2019-06-11] MEDS: ENOXAPARIN NA (PORCINE) 40 MG/0.4 ML DISP.SYRIN SQ SCH (10:03)
[2019-06-11] MEDS: amLODIPine BESYLATE 5 MG TABLET (FP) PO SCH (10:03)
[2019-06-11] MEDS: SODIUM CHLORIDE 0.45% 1,000 ML IV SCH (10:05)
[2019-06-11 14:18] VITALS: BP 148/93; PULSE 72; TEMP 98.3
--- NOTE | 2019-06-11 15:51 | DS ---
Physical Examination Vital Signs: Vital Signs Temperature 98.3 F 06/11/19 14:17 Pulse Rate 72 06/11/19 14:17 Respiratory Rate 20 06/11/19 14:17 Blood Pressure 148/93 06/11/19 14:17 O2 Sat by Pulse Oximetry (%) 100 06/11/19 09:00 Constitutional: Yes: Calm, Obese Eyes: Yes: EOM Intact HENT: Yes: Normocephalic Neck: Yes: Trachea Midline Cardiovascular: Yes: Regular Rate and Rhythm Respiratory: Yes: CTA Bilaterally Gastrointestinal: Yes: Normal Bowel Sounds, Soft, Abdomen, Obese Edema: No Peripheral Pulses WNL: Yes Neurological: Yes: WNL Labs: CBC, BMP 06/11/19 08:05 06/11/19 08:05 Discharge Summary Problems reviewed: Yes Reason For Visit: HB-SS DISEASE WITH CRISIS Current Active Problems HTN (hypertension) (Acute) Obesity, unspecified (Acute) Sickle-cell crisis (Acute) Hospital Course: admitted for acute sickle cell pain crisis xray left knee and us of lle negative for fracture and dvt symptoms improved with iv hydration and pain management dc home with oral pain medication Condition: Stable - Instructions Diet, Activity, Other Instructions: f/up with dr. Victor next week Referrals: Mariajose Victor MD [Primary Care Provider] - Disposition: HOME - Home Medications Comprehensive Discharge Medication List: Ambulatory Orders Amlodipine Besylate 5 mg PO DAILY 06/09/19 Acetaminophen W/ Codeine #3 [Tylenol # 3 -] 2 tab PO Q6H PRN #40 tablet MDD 8 Ondansetron HCl [Zofran] 4 mg PO Q6H PRN #15 tablet 06/11/19
== END 2019-06-11 17:15 | disposition home or self-care (01) | DRG 662 ==
LOC: JER 05:09 → JERBED 07:49 → J8W 11:45
PROVIDERS: ADMIT Internal Medicine; ATTEND Internal Medicine
DX: D57.00 Hb-SS disease with crisis, unspecified (principal); E66.9 Obesity, unspecified; Z68.43 Body mass index [BMI] 50.0-59.9, adult; I10 Essential (primary) hypertension
CPT/HCPCS: 36415; 80053; 81003; 84484; 85025; 85027; 85044; 85610; 86850; 86900; 86901; 87086; 93005; 93010; 93971-TC; 99285-25

== ENCOUNTER 2020-07-22 08:48 | Inpatient (IN) | payer OTHER ==
[2020-07-22] MEDS ORDERED: ACETAMINOPHEN WITH CODEINE 300MG/30MG TABLET PO ONE (09:26)
[2020-07-22] MEDS ORDERED: SODIUM CHLORIDE 1,000 ML IV STA ×2 (09:42→16:14)
[2020-07-22] MEDS ORDERED: ACETAMINOPHEN WITH CODEINE 300MG/30MG TABLET ONE (10:22)
[2020-07-22 10:47] LABS: BASO % 1.2 % (0-2.0); EOS % 5.2 % (0-4.5); HEMATOCRIT 29.3 % (32.4-45.2); HEMOGLOBIN 10.5 GM/dL (10.7-15.3); LYMPH % 23.7 % (8-40); MCH 27.4 pg (25.7-33.7); MCHC 35.9 g/dl (32.0-36.0); MEAN CELL VOLUME 76.4 fl (80-96); MONO % 2.6 % (3.8-10.2); NEUT % 67.3 % (42.8-82.8); PLATELET COUNT 173 K/MM3 (134-434); RBC 3.83 M/mm3 (3.60-5.2); RDW 17.8 % (11.6-15.6); RETICULOCYTES 2.86 % (0.5-1.5); WHITE BLOOD COUNT 8.3 K/mm3 (4.0-10.0)
[2020-07-22 10:51] LABS: INR 1.02 (0.83-1.09); PROTHROMBIN TIME (PATIENT) 12.5 SEC (9.7-13.0)
[2020-07-22 11:05] LABS: CALCIUM 8.6 mg/dL (8.5-10.1)
[2020-07-22 11:06] LABS: ALBUMIN 3.5 g/dl (3.4-5.0); BLOOD UREA NITROGEN 7.8 mg/dL (7-18)
[2020-07-22 11:09] LABS: CREATININE 0.8 mg/dL (0.55-1.3)
[2020-07-22 11:11] LABS: TOT PROT 7.2 g/dl (6.4-8.2)
[2020-07-22 11:12] LABS: BILIRUBIN,TOTAL 0.6 mg/dL (0.2-1)
[2020-07-22] MEDS ORDERED: ONDANSETRON 4 MG/2 ML VIAL IVPUSH ONE ×2 (11:37→16:14)
[2020-07-22] MEDS ORDERED: morphine CARPU-JECT 4 MG/1 ML DISP.SYRIN IVPUSH ONE ×2 (11:37→13:38)
[2020-07-22] MEDS ORDERED: ONDANSETRON 4 MG/2 ML VIAL ONE ×2 (11:41→16:23)
[2020-07-22] MEDS ORDERED: morphine SULFATE 4 MG/ML VIAL ONE (13:51)
[2020-07-22] MEDS ORDERED: morphine SULFATE 4 MG/ML VIAL IVPUSH ONE (22:16)
[2020-07-22 22:22] VITALS: BMI 50.9
[2020-07-23] MEDS: SODIUM CHLORIDE 1,000 ML IV SCH (00:58)
[2020-07-23] MEDS ORDERED: morphine SULFATE 4 MG/ML VIAL IVPUSH PRN (03:00)
[2020-07-23 08:00] LABS: BASO % 0.9 % (0-2.0); EOS % 4.7 % (0-4.5); HEMATOCRIT 28.2 % (32.4-45.2); HEMOGLOBIN 9.5 GM/dl (10.7-15.3); LYMPH % 25.8 % (8-40); MCH 27.2 pg (25.7-33.7); MCHC 33.6 g/dl (32.0-36.0); MEAN CELL VOLUME 81.1 fl (80-96); MEAN PLT VOLUME 8.4 fl (7.5-11.1); MONO % 2.7 % (3.8-10.2); NEUT % 65.9 % (42.8-82.8); PLATELET COUNT 128 K/MM3 (134-434); RBC 3.48 M/mm3 (3.60-5.2); RDW 16.5 % (11.6-15.6); WHITE BLOOD COUNT 6.9 K/mm3 (4.0-10.8)
[2020-07-23 08:26] LABS: ALBUMIN 3.3 g/dl (3.4-5.0); BILIRUBIN,TOTAL 0.9 mg/dl (0.2-1); CALCIUM 8.1 mg/dl (8.5-10); CREATININE 0.7 mg/dl (0.55-1.3); TOT PROT 6.2 g/dl (6.4-8.2)
[2020-07-23] MEDS: HEPARIN NA (PORCINE) 5,000 UNITS/ML 1ML VIAL SQ SCH ×2 (09:11→21:44)
[2020-07-23] MEDS: ACETAMINOPHEN 325 MG TABLET (FP) PO PRN ×3 (09:21→19:55)
[2020-07-23] MEDS: oxyCODONE HCL 5 MG TABLET PO PRN ×3 (09:21→19:54)
[2020-07-23] MEDS: amLODIPine BESYLATE 5 MG TABLET (FP) PO SCH (09:22)
[2020-07-24] MEDS: oxyCODONE HCL 5 MG TABLET PO PRN (00:22)
[2020-07-24] MEDS: ACETAMINOPHEN 325 MG TABLET (FP) PO PRN (00:22)
[2020-07-24] MEDS: SODIUM CHLORIDE 1,000 ML IV SCH (01:59)
[2020-07-24] MEDS ORDERED: morphine SULFATE 4 MG/ML VIAL IVPUSH ONE (05:30)
[2020-07-24] MEDS: HEPARIN NA (PORCINE) 5,000 UNITS/ML 1ML VIAL SQ SCH (11:08)
[2020-07-24 11:10] VITALS: BP 131/61; PULSE 61; TEMP 98
[2020-07-24] MEDS: amLODIPine BESYLATE 5 MG TABLET (FP) PO SCH (11:11)
== END 2020-07-24 12:15 | disposition home or self-care (01) | DRG 662 ==
LOC: JER 08:48 → JERBED 17:03 → FM/S 22:04
PROVIDERS: ADMIT Internal Medicine; ATTEND Nurse Practitioner Acute Care
DX: D57.09 Hb-SS disease with crisis with other specified complication (principal); I10 Essential (primary) hypertension; J45.909 Unspecified asthma, uncomplicated; M25.522 Pain in left elbow; Z68.43 Body mass index [BMI] 50.0-59.9, adult
CPT/HCPCS: 36415; 71046-TC-FY; 80053; 80307; 85025; 85045; 85610; 93005; 93010; 99285-25; C9803; J1644; U0003; U0005